=== PATIENT | male | born 1940 | race Caucasian/White ===

== ENCOUNTER 2016-10-07 14:40 | Emergency (ER) | payer OTHER, MEDICARE ==
[~2016-10-07] VITALS: Ht 162.6 cm; Wt 60.0 kg
[~2016-10-07 14:40] MED LIST: ACET650T10 PO; CARN250C3 PO; COQ1100C PO; CORNPOW11 PO; FISHCAP PO; GLUC500C3 PO; HYDR-3580 PO; IRON325T2 PO; OMEG300C PO; RIVA10 PO; SAW160TA PO; TAB-TAB PO; TURMCAP PO; VITA-13 PO; VITA100T50 PO; VITA400C70 PO; Z.0.COMMODE-3:1; Z.0.WALKERFRONT; [UNRECOGNIZED DRUG - CODE] PO
[2016-10-07 14:42] VITALS: BP 190/92; PULSE 112; RESP 20; TEMP 98.3; O2SAT 97
[2016-10-07] MEDS ORDERED: TETANUS/DIPHTHERIA TOXOID ADULT 0.5 ML VIAL IM ONE (15:15)
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
--- NOTE | 2016-10-07 16:15 | RADRPT ---
EXAM DATE/TIME: 10/07/2016 15:32 [facility] COMPARISON: No previous studies available for comparison. INDICATIONS : MCA, chest pain. MEDICAL HISTORY : None. SURGICAL HISTORY : None. ENCOUNTER: Initial ACUITY: 1 day PAIN SCORE: 0/10 LOCATION: Bilateral chest FINDINGS: PA and lateral views of the chest demonstrate the lungs to be symmetrically aerated without evidence of mass, infiltrate or effusion. The cardiomediastinal contours are unremarkable. Spurs are seen in the thoracic spine. There is degenerative change of the glenohumeral and acromioclavicular joints.. CONCLUSION: No acute cardiopulmonary process. Hussein Urbina MD on October 07, 2016 at 16:11 Board Certified Radiologist. This report was verified electronically.
--- NOTE | 2016-10-07 16:17 | RADRPT ---
EXAM DATE/TIME: 10/07/2016 15:34 [facility] COMPARISON: No previous studies available for comparison. INDICATIONS : MCA, Left lateral ankle pain. MEDICAL HISTORY : None. SURGICAL HISTORY : None. ENCOUNTER: Initial ACUITY: 1 day PAIN SCORE: 2/10 LOCATION: Left ankle FINDINGS: There is a fracture at the distal fibula 3.8 cm proximal to the tip of the lateral malleolus. The fra cture is not displaced. Ankle is normally aligned. There is soft tissue swelling. Vascular calcificat ions are seen. CONCLUSION: Nondisplaced distal fibular fracture. Hussein Urbina MD on October 07, 2016 at 16:13 Board Certified Radiologist. This report was verified electronically.
--- NOTE | 2016-10-07 16:18 | RADRPT ---
EXAM DATE/TIME: 10/07/2016 15:39 [facility] COMPARISON: No previous studies available for comparison. INDICATIONS : MCA, left elbow pain. MEDICAL HISTORY : None. SURGICAL HISTORY : None. ENCOUNTER: Initial ACUITY: 1 day PAIN SCORE: 0/10 LOCATION: Left elbow FINDINGS: The elbow joint is normally aligned. There is prominent hypertrophic change seen throughout the elbow joint. There are small calcific densities likely representing loose bodies in the elbow joint being most prominently seen at the olecranon fossa. A significant elbow joint effusion is not seen. A fract ure is not seen. CONCLUSION: Chronic change of the elbow. Hussein Urbina MD on October 07, 2016 at 16:14 Board Certified Radiologist. This report was verified electronically.
--- NOTE | 2016-10-07 16:20 | RADRPT ---
EXAM DATE/TIME: 10/07/2016 15:41 [facility] COMPARISON: No previous studies available for comparison. INDICATIONS : MCA, Left wrist pain. MEDICAL HISTORY : None. SURGICAL HISTORY : None. ENCOUNTER: Initial ACUITY: 1 day PAIN SCORE: 0/10 LOCATION: Left wrist FINDINGS: An acute fracture is not clearly seen. There is calcific density seen throughout the wrist joint. The re is well corticated calcific density seen in the expected location of the ulnar styloid. An acute f racture line is not clearly seen. Vascular calcifications are seen. CONCLUSION: Suspected chronic change as described above. Hussein Urbina MD on October 07, 2016 at 16:16 Board Certified Radiologist. This report was verified electronically.
--- NOTE | 2016-10-07 16:21 | RADRPT ---
EXAM DATE/TIME: 10/07/2016 15:45 [facility] COMPARISON: No previous studies available for comparison. INDICATIONS : Right shoulder pain, MCA. MEDICAL HISTORY : None. SURGICAL HISTORY : None. ENCOUNTER: Initial ACUITY: 1 day PAIN SCORE: 0/10 LOCATION: Right shoulder FINDINGS: An acute fracture is not clearly seen. The glenohumeral joint is aligned. There is fine calcific dens ity seen over the humeral head and adjacent to the proximal humerus likely related to a combination o f loose bodies and chondrocalcinosis. There some spurring at the acromioclavicular joint. CONCLUSION: Suspected chronic change at the glenohumeral and acromioclavicular joints. Hussein Urbina MD on October 07, 2016 at 16:17 Board Certified Radiologist. This report was verified electronically.
--- NOTE | 2016-10-07 16:23 | RADRPT ---
EXAM DATE/TIME: 10/07/2016 15:47 [facility] COMPARISON: No previous studies available for comparison. INDICATIONS : MCA. Complains of left shoulder pain. MEDICAL HISTORY : Previous left dislocated shoulder SURGICAL HISTORY : None. ENCOUNTER: Initial ACUITY: 1 day PAIN SCORE: 2/10 LOCATION: Left shoulder FINDINGS: An acute fracture is not seen. The glenohumeral and acromioclavicular joints are normally aligned. Th e prominent hypertrophic change at the inferior medial humeral head and the inferior glenoid. There i s hypertrophic change of the acromion and around the superior aspect of the acromioclavicular joint. There is some calcific density in the subscapularis fossa region which may represent a prominent 2 cm loose body. CONCLUSION: Chronic change as described above. Hussein Urbina MD on October 07, 2016 at 16:19 Board Certified Radiologist. This report was verified electronically.
[2016-10-07 17:46] VITALS: BP 164/79; PULSE 96; RESP 20; O2SAT 98
== END 2016-10-07 18:20 | disposition home or self-care (01) ==
LOC: NEPD 14:40
DX: S82.832A Other fracture of upper and lower end of left fibula, initial encounter for closed fracture (principal); T14.8 Other injury of unspecified body region; V22.4XXA Motorcycle driver injured in collision with two- or three-wheeled motor vehicle in traffic accident, initial encounter; Y92.410 Unspecified street and highway as the place of occurrence of the external cause; Z23 Encounter for immunization
CPT/HCPCS: 29515; 71020; 73030; 73080; 73110; 73610; 90471; 90714